=== PATIENT | male | born 1955 | race Caucasian/White ===

== ENCOUNTER 2017-03-16 18:43 | Emergency (ER) | payer OTHER ==
[~2017-03-16] VITALS: Ht 182.9 cm; Wt 90.0 kg
[~2017-03-16 18:43] MED LIST: ASPCH81X PO; CHOL100010 PO; ESCI1TAB10 PO; GLAT1INJ SC; MCRK20 PO; MODA1TAB PO; MULT-922 PO; OMEP20CA9 PO; PRAS1CAP2 PO; RTL20 PO; TMB100 PO; TPRSR/50 PO; [UNRECOGNIZED DRUG - OTHER] PO
[2017-03-16 18:47] VITALS: BP 155/93; TEMP 36.6; O2SAT 98; Ht 182.9 cm; Wt 90.0 kg
[2017-03-16 18:48] VITALS: PULSE 60
[2017-03-16] MEDS ORDERED: RTL10 PO (19:07)
[2017-03-16] MEDS ORDERED: FLUT0.15 NAE (19:07)
[2017-03-16] MEDS ORDERED: POTA20TA13 PO (19:07)
[2017-03-16] MEDS ORDERED: CHOL100027 PO (19:07)
--- NOTE | 2017-03-16 19:10 | EMERGENCY ROOM VISIT NOTE ---
History Report prepared by Sawyer: Fredis Spencer Under the Supervision of: Dr. Aristides Taylor D.O. First contact with patient: 18:46 Chief Complaint: ALCOHOL OVERDOSE Stated Complaint: FALL, ETOH History of Present Illness The patient is a 62 year old male who presents to the Emergency Room with complaints of a fall that occurred AUTO WINDER. Earlier today, the patient was drinking alcohol. He states that he drank 5 beers. He was walking outside the [facility] downtown, when he fell and hit the back of his head. He was on his way home and was going to call himself a cab. He has a history of MS, so he says that he has balance issues. He states that he is not in any pain, and he did not lose consciousness. Source of History: patient Onset: AUTO WINDER Position: other (Global) Symptom Intensity: mild Quality: other (Fall) Timing: resolved Associated Symptoms: No LOC Note: He denies any pain at the moment. He drank alcohol this evening. Review of Systems See HPI for pertinent positives & negatives. A total of 10 systems reviewed and were otherwise negative. Past Medical & Surgical Medical Problems: (1) Alcohol abuse (2) Dyslipidemia (3) HTN (hypertension) (4) Multiple sclerosis (5) Paroxysmal atrial fibrillation (6) Spinal stenosis (7) Tobacco abuse (8) Transverse myelitis Surgical Problems: (1) History of appendectomy (2) History of dental surgery (3) History of inguinal hernia repair (4) History of tonsillectomy and adenoidectomy Family History Cancer Social History Smoking Status: Never Smoker Smokeless Tobacco Use: No Alcohol Use: occasionally Drug Use: none Marital Status: Housing Status: lives with roommate Occupation Status: employed Current/Historical Medications Scheduled Aspirin (Aspirin Chewable), 2 TAB PO QAM Cholecalciferol (Vitamin D), 3,000 UNITS PO DAILY Escitalopram Oxalate (Lexapro), 30 MG PO DAILY Glatiramer Acetate (Copaxone), 40 MG SC 3XWK Methylphenidate (Ritalin), 20 MG PO DAILY Metoprolol Succinate (Metoprolol Succinate ER), 50 MG PO QAM Modafinil (Provigil), 200 MG PO DAILY Multiple Vitamins W/ Minerals (Multivitamin Adults), 1 TAB PO DAILY Omeprazole (Prilosec), 20 MG PO BID Potassium Chloride (Klor-Con M20), 20 MEQ PO QAM Prasterone (Dhea) (Dhea), 50 MG PO DAILY [Excedrin,Asa Free], 2-4 TABS PO PRN Scheduled PRN Flecainide Acetate (Flecainide Acetate), 100 MG PO UD PRN for palpitations Allergies Coded Allergies: Lisinopril (Unverified Adverse Reaction, Intermediate, cough, 04/04/16) Physical Exam Vital Signs Date Time Temp Pulse Resp B/P (MAP) Pulse Ox O2 Delivery O2 Flow Rate FiO2 03/16/17 18:48 60 03/16/17 18:47 36.6 61 20 155/93 98 Room Air Physical Exam CONSTITUTIONAL/VITAL SIGNS: Reviewed / noted above. GENERAL: Non-toxic in appearance. INTEGUMENTARY: Warm, dry, and [place]. HEAD: Normocephalic. Contusion/abrasion to the posterior apex of the head. No significant laceration or open wound. EYES: without scleral icterus or trauma. ENT/OROPHARYNX: clear and moist. LYMPHADENOPATHY/NECK: Is supple without lymphadenopathy or meningismus. RESPIRATORY: Lungs clear and equal. CARDIOVASCULAR: Regular rate and rhythm. GI/ABDOMEN: Soft and nontender. No organomegaly or pulsatile mass. No rebound or guarding. Normal bowel sounds. EXTREMITIES: Warm and well perfused. BACK: No CVA tenderness. NEUROLOGICAL: Intact without focal deficits. PSYCHIATRIC: normal affect. MUSCULOSKELETAL: Normally developed with good muscle tone. Medical Decision & Procedures ED Course 184: Previous medical records were reviewed. The patient was evaluated in room B2. A complete history and physical examination was performed. 1914: On reevaluation, the patient is resting. I discussed the results and findings with the patient. He verbalized agreement of the treatment plan. He was discharged home. Medical Decision Differential includes close head injury, intracranial bleed, facial trauma, cervical spine trauma, chest and thoracic trauma, abdominal and intra-abdominal trauma, spine neurologic trauma, extremity trauma. This is a 62-year-old male who presents to the ED with a chief complaint of a fall. The patient states that he has a history of MS and is somewhat unsteady on his feet. He states that he drank 5 beers at the first. He was outside and fell backwards when he lost his balance. He struck the back of his head. He denies loss of consciousness. He did not want to come to the hospital but cannot find a ride immediately. He was brought here by EMS. The patient states that he does not believe he is intoxicated. He does not want any workup done here. He states that he will contact someone to pick him up. The patient' s exam reveals a small amount of bleeding to the posterior apex of the head where there is an abrasion. The patient's exam was otherwise unremarkable. He was offered a CT scan of his brain but declined this. He does not feel he has an intracranial injury. He denies any headaches. He is awake, alert and oriented. He does not appear to be intoxicated at this time. He is not slurring his speech. I do not feel that he can be forced to get a CT scan of his head. He will be given head injury instructions. His ride was told to watch him and keep in touch with him and bring him back should he develop any symptoms. The patient does not live alone. Medication Reconcilliation Current Medication List: was personally reviewed by me Blood Pressure Screening Patient's blood pressure: Elevated blood pressure Blood pressure disposition: Elevated BP felt to be situational Impression Primary Impression: Abrasion head Scribe Attestation The scribe's documentation has been prepared under my direction and personally reviewed by me in its entirety. I confirm that the note above accurately reflects all work, treatment, procedures, and medical decision making performed by me. Departure Information Dispostion Home / Self-Care Referrals Conor Gallegos III, M.D. (PCP) Forms HOME CARE DOCUMENTATION FORM, IMPORTANT VISIT INFORMATION Patient Instructions ED Head Injury Closed, My [facility] Additional Instructions Return to the emergency department for headaches, nausea, vomiting, visual changes, focal weakness or other concerns.
== END 2017-03-16 19:15 | disposition home or self-care (01) ==
LOC: EDBD 18:43 → C.EDB 18:44
DX: S00.81XA Abrasion of other part of head, initial encounter (principal); W19.XXXA Unspecified fall, initial encounter; W22.8XXA Striking against or struck by other objects, initial encounter; Y93.01 Activity, walking, marching and hiking; Y99.8 Other external cause status; G35 Multiple sclerosis; I48.0 Paroxysmal atrial fibrillation; I10 Essential (primary) hypertension; Z90.89 Acquired absence of other organs; Z98.818 Other dental procedure status; Z98.890 Other specified postprocedural states; Z79.82 Long term (current) use of aspirin; Z79.899 Other long term (current) drug therapy